=== PATIENT | female | born 1965 | race African-American/Black ===

== ENCOUNTER 2019-03-16 12:53 | Emergency (ER) | payer OTHER ==
[~2019-03-16] VITALS: Ht 170.2 cm; Wt 77.1 kg
--- NOTE | 2019-03-16 12:53 | NUR ---
CAME IN FOR L SIDE OF ABDOMEN SURGICAL BLEEDING. TO ER BED 9, HOOKED TO MONITOR, CHANGED TO GOWN, AWAITING MD PÉREZ.
--- NOTE | 2019-03-16 13:16 | NUR ---
TANJA CALIX AT BEDSIDE
[2019-03-16] MEDS ORDERED: ACETAMINOPHEN ES 500 MG TABLET ONE (13:26)
[2019-03-16] MEDS ORDERED: ACETAMINOPHEN 325 MG TABLET PO ONE (13:30)
--- NOTE | 2019-03-16 14:41 | NUR ---
CONTACTED DR REED'S OFFICE AT . SURGEON WAS PAGED.
--- NOTE | 2019-03-16 15:47 | NUR ---
Patient discharged to home in stable condition. Written and verbal after care instructions given. Patient verbalizes understanding of instruction.
[2019-03-16 15:52] VITALS: BP 132/84
== END 2019-03-16 15:52 | disposition home or self-care (01) ==
LOC: ER 12:55
DX: L76.32 Postprocedural hematoma of skin and subcutaneous tissue following other procedure (principal); Z85.72 Personal history of non-Hodgkin lymphomas; Z98.890 Other specified postprocedural states; Z90.710 Acquired absence of both cervix and uterus
CPT/HCPCS: 76882